=== PATIENT | female | born 1965 | race Asian ===

== ENCOUNTER → 2017-02-07 11:33 | Emergency (ER) | payer OTHER ==
[~2017-02-07 11:33] MED LIST: NS 0.9% 1000 ML* 2,000 ML IV ONE; Ondansetron INJ* 2 MG/ML VIAL IV ONE
[2017-02-07 14:57] LABS: Hematocrit 43 % (35-47); Mean Corpuscular HGB Conc 33 g/dl (31-36); Mean Corpuscular Hemoglobin 28 pg (27-31); Mean Corpuscular Volume 84 fL (80-97); Mean Platelet Volume 9 um3 (7.4-10.4); Red Blood Count 5.04 10^6/ul (4.0-5.4); Red Cell Distribution Width 14 % (10.5-15); White Blood Count 7.4 10^3/ul (3.5-10.8)
[2017-02-07 15:02] LABS: Urine Bilirubin Negative (Negative); Urine Glucose Negative (Negative); Urine Nitrite Negative (Negative)
[2017-02-07 15:20] LABS: ALT 38 U/L (7-52); AST 37 U/L (13-39); Albumin 4.6 g/dL (3.2-5.2); Alkaline Phosphatase 75 U/L (34-104); Anion Gap 7 mmol/L (2-11); BUN/Creatinine Ratio 22.6 (8-20); Blood Urea Nitrogen 21 mg/dL (6-24); C Reactive Protein < 1.00 mg/L (< 5.00); CO2 Carbon Dioxide 28 mmol/L (22-32); Calcium 10.2 mg/dL (8.6-10.3); Chloride 101 mmol/L (101-111); EGFR African American 81.4 (>60); EGFR Non-African American 63.3 (>60); Globulin 2.9 g/dL (2-4); Glucose 112 mg/dL (70-100); Lipase 30 U/L (11.0-82.0); Magnesium 1.9 mg/dL (1.9-2.7); Sodium 136 mmol/L (133-145); Total Protein 7.5 g/dL (6.4-8.9)
[2017-02-07 15:45] LABS: TSH (Thyroid Stimulating Horm) 0.96 mcIU/mL (0.34-5.60)
--- NOTE | 2017-02-07 16:44 | ED ---
Clinton Leon Erika, scribed for Carmen Bruno MD on 02/07/17 at 1636 . Dizziness - HPI Summary HPI Summary: Patient is a 51-year-old female presenting to the ED with her and son with a CC of dizziness and nausea that was present since this morning. Patient reports that this morning, she woke up at 08:00, and she was dizzy with a room- spinning sensation. She went to the bathroom, and became nauseated and vomited a white emesis. Pt ate a banana, but vomited again. Nausea then began to improve. She noted a headache, so took Tylenol. She then tried to nap but could not due to a head-spinning sensation, so came to the ED. Pt denies any fever, chills, chest pain, SOB, and diarrhea. Patient has been in the ED receiving treatment prior to this initial evaluation, and pt now states she is symptom- free - she denies headache, dizziness, nausea, and vomiting. Pt states she took her husbands HTN medication [employer] because she thought Sx may be related to high blood pressure. At the time of evaluation, pt reports feeling very well and requesting discharge home. Pt states hungry and feels normal Denies PSHx. Pt states she is menopausal. Pt does not currently have a PCP. She denies smoking, drinking, or using illicit drugs. - History Of Current Complaint Chief Complaint: EDDizziness Stated Complaint: DIZZY Time Seen by Provider: 02/07/17 14:15 Hx Obtained From: Patient, Family/Fiction Writer Onset/Duration: Resolved Timing: Intermittent Episode Lasting - minutes Severity Initially: Moderate Severity Currently: None Character: Head Spinning, Room Spinning, Dizzy Aggravating Factor(s): Supine To Erect Alleviating Factor(s): Other - resolved with ED Tx Associated Signs And Symptoms: Positive: Nausea, Vomiting. Negative: Diarrhea, Chest Pain, SOB, Fever, Chills - Allergies/Home Medications Allergies/Adverse Reactions: Allergies Allergy/AdvReac Type Severity Reaction Status Date / Time No Known Allergies Allergy Verified 02/07/17 15:07 PMH/Surg Hx/FS Hx/Imm Hx Previously Healthy: Yes Endocrine/Hematology History: Denies: Hx Diabetes Cardiovascular History: Reports: Hx Hypertension Denies: Hx Myocardial Infarction Infectious Disease History: No Infectious Disease History: Denies: Traveled Outside the [place] in Last 30 Days - Family History Known Family History: Positive: Hypertension - Social History Occupation: Employed Full-time Lives: With Family Alcohol Use: None Hx Substance Use: No Substance Use Type: Reports: None Hx Tobacco Use: No Smoking Status (MU): Never Smoked Tobacco Review of Systems Negative: Fever, Chills Eyes: Negative ENT: Negative Negative: Chest Pain Negative: Shortness Of Breath Positive: Vomiting, Nausea. Negative: Diarrhea Genitourinary: Negative Musculoskeletal: Negative Skin: Negative Neurological: Other - Dizziness Positive: Headache Psychological: Normal All Other Systems Reviewed And Are Negative: Yes Physical Exam Triage Information Reviewed: Yes Vital Signs On Initial Exam: Initial Vitals Temp Pulse Resp BP Pulse Ox 97.5 F 66 18 174/89 99 02/07/17 11:35 02/07/17 11:35 02/07/17 11:35 02/07/17 11:35 02/07/17 11:35 Vital Signs Reviewed: Yes Appearance: Positive: Well-Appearing, No Pain Distress, Well-Nourished Skin: Positive: Warm, Skin Color Reflects Adequate Perfusion, Dry Head/Face: Positive: Normal Head/Face Inspection Eyes: Positive: Normal, EOMI, VALDEZ, Other: - no nystagmus ENT: Positive: Pharynx normal, TMs normal Neck: Positive: Supple, Nontender, No Lymphadenopathy Respiratory/Lung Sounds: Positive: Clear to Auscultation, Breath Sounds Present Cardiovascular: Positive: Normal, RRR, Pulses are Symmetrical in both Upper and Lower Extremities Abdomen Description: Positive: Nontender, No Organomegaly, Soft Musculoskeletal: Positive: Normal, Strength/ROM Intact Neurological: Positive: Normal, Sensory/Motor Intact, Alert, Oriented to Person Place, Time Psychiatric: Positive: Normal AVPU Assessment: Alert - Veronica Coma Scale Best Eye Response: 4 - Spontaneous Best Motor Response: 6 - Obeys Commands Best Verbal Response: 5 - Oriented Diagnostics - Vital Signs Vital Signs Temp Pulse Resp BP Pulse Ox 02/07/17 15:05 97.7 F 67 12 183/93 100 02/07/17 14:30 48 138/94 99 02/07/17 14:15 64 99 02/07/17 14:13 163/102 02/07/17 12:57 97.7 F 65 18 160/97 99 02/07/17 11:35 97.5 F 66 18 174/89 99 - Laboratory Lab Results: Lab Results 02/07/17 02/07/17 02/07/17 Range/Units 14:40 14:40 14:40 WBC 7.4 (3.5-10.8) 10^3/ul RBC 5.04 (4.0-5.4) 10^6/ul Hgb 14.0 (12.0-16.0) g/dl Hct 43 (35-47) % MCV 84 (80-97) fL MCH 28 (27-31) pg MCHC 33 (31-36) g/dl RDW 14 (10.5-15) % Plt Count 149 L (150-450) 10^3/ul MPV 9 (7.4-10.4) um3 Neut % (Auto) 89.1 H (38-83) % Lymph % (Auto) 7.6 L (25-47) % Haakon % (Auto) 3.0 (1-9) % Eos % (Auto) 0.1 (0-6) % Baso % (Auto) 0.2 (0-2) % Absolute Neuts (auto) 6.6 (1.5-7.7) 10^3/ul Absolute Lymphs (auto) 0.6 L (1.0-4.8) 10^3/ul Absolute Monos (auto) 0.2 (0-0.8) 10^3/ul Absolute Eos (auto) 0 (0-0.6) 10^3/ul Absolute Basos (auto) 0 (0-0.2) 10^3/ul Absolute Nucleated RBC 0 10^3/ul Nucleated RBC % 0 INR (Anticoag Therapy) 0.82 L (0.89-1.11) APTT 27.5 (26.0-36.3) seconds Sodium 136 (133-145) mmol/L Potassium 4.0 (3.5-5.0) mmol/L Chloride 101 (101-111) mmol/L Carbon Dioxide 28 (22-32) mmol/L Anion Gap 7 (2-11) mmol/L BUN 21 (6-24) mg/dL Creatinine 0.93 (0.51-0.95) mg/dL Est GFR ( Amer) 81.4 (>60) Est GFR (Non-Af Amer) 63.3 (>60) BUN/Creatinine Ratio 22.6 H (8-20) Glucose 112 H (70-100) mg/dL Lactic Acid (0.5-2.0) mmol/L Calcium 10.2 (8.6-10.3) mg/dL Magnesium 1.9 (1.9-2.7) mg/dL Total Bilirubin 1.50 H (0.2-1.0) mg/dL AST 37 (13-39) U/L ALT 38 (7-52) U/L Alkaline Phosphatase 75 (34-104) U/L Troponin I 0.00 (<0.04) ng/mL C-Reactive Protein < 1.00 (< 5.00) mg/L Total Protein 7.5 (6.4-8.9) g/dL Albumin 4.6 (3.2-5.2) g/dL Globulin 2.9 (2-4) g/dL Albumin/Globulin Ratio 1.6 (1-3) Lipase 30 (11.0-82.0) U/L TSH 0.96 (0.34-5.60) mcIU/mL Urine Color Urine Appearance Urine pH (5-9) Ur Specific [place] (1.010-1.030) Urine Protein (Negative) Urine Ketones (Negative) Urine Blood (Negative) Urine Nitrate (Negative) Urine Bilirubin (Negative) Urine Urobilinogen (Negative) Ur Leukocyte Esterase (Negative) Urine Glucose (Negative) 02/07/17 02/07/17 Range/Units 14:40 14:51 WBC (3.5-10.8) 10^3/ul RBC (4.0-5.4) 10^6/ul Hgb (12.0-16.0) g/dl Hct (35-47) % MCV (80-97) fL MCH (27-31) pg MCHC (31-36) g/dl RDW (10.5-15) % Plt Count (150-450) 10^3/ul MPV (7.4-10.4) um3 Neut % (Auto) (38-83) % Lymph % (Auto) (25-47) % Haakon % (Auto) (1-9) % Eos % (Auto) (0-6) % Baso % (Auto) (0-2) % Absolute Neuts (auto) (1.5-7.7) 10^3/ul Absolute Lymphs (auto) (1.0-4.8) 10^3/ul Absolute Monos (auto) (0-0.8) 10^3/ul Absolute Eos (auto) (0-0.6) 10^3/ul Absolute Basos (auto) (0-0.2) 10^3/ul Absolute Nucleated RBC 10^3/ul Nucleated RBC % INR (Anticoag Therapy) (0.89-1.11) APTT (26.0-36.3) seconds Sodium (133-145) mmol/L Potassium (3.5-5.0) mmol/L Chloride (101-111) mmol/L Carbon Dioxide (22-32) mmol/L Anion Gap (2-11) mmol/L BUN (6-24) mg/dL Creatinine (0.51-0.95) mg/dL Est GFR ( Amer) (>60) Est GFR (Non-Af Amer) (>60) BUN/Creatinine Ratio (8-20) Glucose (70-100) mg/dL Lactic Acid 1.0 (0.5-2.0) mmol/L Calcium (8.6-10.3) mg/dL Magnesium (1.9-2.7) mg/dL Total Bilirubin (0.2-1.0) mg/dL AST (13-39) U/L ALT (7-52) U/L Alkaline Phosphatase (34-104) U/L Troponin I (<0.04) ng/mL C-Reactive Protein (< 5.00) mg/L Total Protein (6.4-8.9) g/dL Albumin (3.2-5.2) g/dL Globulin (2-4) g/dL Albumin/Globulin Ratio (1-3) Lipase (11.0-82.0) U/L TSH (0.34-5.60) mcIU/mL Urine Color Straw Urine Appearance Clear Urine pH 7.0 (5-9) Ur Specific [place] 1.004 L (1.010-1.030) Urine Protein Negative (Negative) Urine Ketones Negative (Negative) Urine Blood Negative (Negative) Urine Nitrate Negative (Negative) Urine Bilirubin Negative (Negative) Urine Urobilinogen Negative (Negative) Ur Leukocyte Esterase Negative (Negative) Urine Glucose Negative (Negative) Result Diagrams: 02/07/17 14:40 02/07/17 14:40 Lab Statement: Any lab studies that have been ordered have been reviewed, and results considered in the medical decision making process. Dizzy Course/Dx - Course Assessment/Plan: Pt presents with dizziness, nausea and vomiting started this morning. Pt improved since in ED. Pt without complaints at time of exam. Pt with non-concerning exam, stable vitals signs and normal blood risa. Will give po trial. anticipate discharge - Diagnoses Provider Diagnoses: Dizziness, Nausea & vomiting Discharge - Discharge Plan Condition: Improved Disposition: HOME Patient Education Materials: Acute Nausea and Vomiting (ED) Referrals: Chilo Quesada MD [Primary Care Provider] - Additional Instructions: - Okay to alternate ibuprofen (Advil, Motrin) and tylenol every 3 hours for pain. Take with food - For the first 6 hours - eat and drink plenty of non-alcoholic, non-caffinated beverages. Eat bland foods - dry toast, scrambled eggs, noodles, jeelo. Wait until you are feeling better before eating and drinking spicy food, acidic food , tomato based food - Contact your doctor to schedule a follow-up appointment. Contact your doctor or return with questions or concerns The documentation as recorded by the Clinton olvera Erika accurately reflects the service I personally performed and the decisions made by , Carmen Bruno MD.
[2017-02-07 17:12] VITALS: BP 161/88
== END | disposition home or self-care (01) ==
LOC: ED 11:33
DX: R42 Dizziness and giddiness (principal); R11.2 Nausea with vomiting, unspecified; I10 Essential (primary) hypertension
CPT/HCPCS: 36415; 80053; 81003; 83605; 83690; 83735; 84443; 84484; 85025; 85610; 85730; 86140; 96360; 96374; 99283

== ENCOUNTER 2018-09-02 18:13 | Emergency (ER) | payer SELFPAY ==
[2018-09-02] MEDS ORDERED: Acetaminophen TAB* 325 MG PO ONE (20:13)
[2018-09-02] MEDS ORDERED: NS 0.9% 1000 ML*IV.FLUID IV ONE (20:13)
[2018-09-02] MEDS ORDERED: Levofloxacin 500 MG IVPREMIX(* 500 MG/100 ML BAG IVPB ONE (20:15)
--- NOTE | 2018-09-02 20:17 | ED ---
Back Pain - HPI Summary HPI Summary: This patient is a 53 year old F presenting to [facility] with a chief complaint of intermittent left sided lower back pain that began last night. The patient rates the pain 8/10 in severity and states the episodes last for about 15 minutes at a time. Patient denies fever, chills, and urinary sx. - History of Current Complaint Chief Complaint: EDFlankPain Stated Complaint: LEFT FLANK PAIN Time Seen by Provider: 09/02/18 20:08 Hx Obtained From: Patient Onset/Duration: Still Present Onset/Duration: Still Present Timing: Intermittent, Lasting Minutes Back Pain Location: Is Discrete @ - L flank Severity Initially: Severe Severity Currently: None Pain Intensity: 8 Pain Scale Used: 0-10 Numeric Associated Signs And Symptoms: Positive: Negative - fever, chills, and urinary sx - Allergies/Home Medications Allergies/Adverse Reactions: Allergies Allergy/AdvReac Type Severity Reaction Status Date / Time No Known Allergies Allergy Verified 09/02/18 18:20 PMH/Surg Hx/FS Hx/Imm Hx Endocrine/Hematology History: Denies: Hx Diabetes Cardiovascular History: Reports: Hx Hypertension Denies: Hx Myocardial Infarction Neurological History: Denies: Hx Spinal Cord Injury Infectious Disease History: No Infectious Disease History: Denies: Traveled Outside the [place] in Last 30 Days - Family History Known Family History: Positive: Hypertension - Social History Alcohol Use: None Hx Substance Use: No Substance Use Type: Reports: None Hx Tobacco Use: No Smoking Status (MU): Never Smoked Tobacco Review of Systems Positive: Fever - denies but patient is febrile in the ED . Negative: Chills Positive: no symptoms reported Positive: Other - L sided back pain All Other Systems Reviewed And Are Negative: Yes Physical Exam - Summary Physical Exam Summary: VITAL SIGNS: Reviewed. GENERAL: Patient is a well-developed and nourished female who is lying comfortable in the stretcher. Patient is not in any acute respiratory distress. HEAD AND FACE: No signs of trauma. No ecchymosis, hematomas or skull depressions. No sinus tenderness. EYES: PERRLA, EOMI x 2, No injected conjunctiva, no nystagmus. EARS: Hearing grossly intact. Ear canals and tympanic membranes are within normal limits. MOUTH: Oropharynx within normal limits. NECK: Supple, trachea is midline, no adenopathy, no JVD, no carotid bruit, no c- spine tenderness, neck with full ROM. CHEST: Symmetric, no tenderness at palpation LUNGS: Clear to auscultation bilaterally. No wheezing or crackles. CVS: Regular rate and rhythm, S1 and S2 present, no murmurs or gallops appreciated. ABDOMEN: Soft, non-tender. No signs of distention. No rebound no guarding, and no masses palpated. Bowel sounds are normal. Back: left sided CVA tenderness EXTREMITIES: FROM in all major joints, no edema, no cyanosis or clubbing. NEURO: Alert and oriented x 3. No acute neurological deficits. Speech is normal and follows commands. SKIN: Dry and warm Triage Information Reviewed: Yes Vital Signs On Initial Exam: Initial Vitals Temp Pulse Resp BP Pulse Ox 100.2 F 77 14 154/96 99 09/02/18 18:20 09/02/18 18:20 09/02/18 18:20 09/02/18 18:20 09/02/18 18:20 Vital Signs Reviewed: Yes Diagnostics - Vital Signs Vital Signs Temp Pulse Resp BP Pulse Ox 09/02/18 18:20 100.2 F 77 14 154/96 99 - Laboratory Result Diagrams: 09/02/18 20:22 09/02/18 20:22 Lab Statement: Any lab studies that have been ordered have been reviewed, and results considered in the medical decision making process. - CT CT ABD pelvis CT Interpretation Completed By: Radiologist Summary of CT Findings: 1. Left adnexal cyst. 2. Diverticulosis coli. 3. Small hiatal hernia. 4. Mild atelectatic changes at the lung bases. ED physician has reviewed this radiology report. Back Pain Course/Dx - Course Assessment/Plan: This patient is a 53 year old F presenting to [facility] with a chief complaint of intermittent left sided lower back pain that began last night. The patient rates the pain 8/10 in severity and states the episodes last for about 15 minutes at a time. Patient denies fever, chills, and urinary sx. CT ABD p reveals, per radiologist, 1. Left adnexal cyst. 2. Diverticulosis coli. 3. Small hiatal hernia. 4. Mild atelectatic changes at the lung bases. Blood work and UA obtained. In the ED course the patient was given IV fluids, Levaquin, and IV fluids. Patient will be discharged with prescription for motrin and follow up from PCP. The patient is agreeable with this plan. - Diagnoses Provider Diagnoses: Back pain Discharge - Sign-Out/Discharge Documenting (check all that apply): Patient Departure - Discharge Plan Condition: Stable Disposition: HOME Prescriptions: Ibuprofen TAB* [Motrin TAB* 400 MG] 400 mg PO Q6H PRN #30 tab PRN Reason: Pain Patient Education Materials: Back Pain (ED) Referrals: Maynor Valerio MD [Primary Care Provider] - 2 Days Additional Instructions: RETURN TO THE EMERGENCY DEPARTMENT FOR CHANGING OR WORSENING SYMPTOMS - Attestation Statements Document Initiated by Scribe: Yes Documenting Scribe: Armand Fulton Provider For Whom Scribe is Documenting (Include Credential): John Aguirre MD Scribe Attestation: Armand Leon , scribed for John Aguirre MD on 09/02/18 at 2240. Status of Scribe Document: Ready
[2018-09-02 20:38] LABS: ABS Basophils 0 10^3/ul (0-0.2); ABS Eosinophils 0 10^3/ul (0-0.6); ABS Monocytes 0.2 10^3/ul (0-0.8); ABS Neutrophils 4.7 10^3/ul (1.5-7.7); ABS Nucleated RBC 0 10^3/ul; Eosinophil % 0.1 %; Hematocrit 42 % (35-47); Hemoglobin 13.9 g/dl (12.0-16.0); Lymphocyte % 16.6 %; Mean Corpuscular HGB Conc 33 g/dl (31-36); Mean Corpuscular Hemoglobin 28 pg (27-31); Mean Corpuscular Volume 85 fL (80-97); Mean Platelet Volume 8.5 fL (7.4-10.4); Nucleated Red Blood Cells % 0; Platelet Count 173 10^3/ul (150-450); Red Blood Count 4.92 10^6/ul (4.00-5.40); Red Cell Distribution Width 14 % (10.5-15); White Blood Count 5.9 10^3/ul (3.5-10.8)
[2018-09-02 20:44] LABS: INR 0.85 (0.77-1.02)
[2018-09-02 20:54] LABS: EGFR Non-African American 61.3 (>60)
[2018-09-02 21:24] LABS: Urine Appearance Clear; Urine Blood Negative (Negative); Urine Color Straw; Urine Ketones Negative (Negative); Urine Protein Negative (Negative); Urine Urobilinogen Negative (Negative)
[2018-09-02 22:50] VITALS: BP 162/97
== END 2018-09-02 22:58 | disposition home or self-care (01) ==
LOC: ED 18:13
DX: M54.5 Low back pain (principal); K57.90 Diverticulosis of intestine, part unspecified, without perforation or abscess without bleeding; R10.84 Generalized abdominal pain; I10 Essential (primary) hypertension
CPT/HCPCS: 36415; 74176; 80053; 81003; 83605; 85025; 85610; 85730; 86140; 87040; 96361; 96365; 99283; A9270-GY; J1956